=== PATIENT | female | born 1945 | race Two or more races ===

== ENCOUNTER 2017-01-10 15:08 | Emergency (ER) | payer OTHER ==
[~2017-01-10] VITALS: Ht 162.6 cm; Wt 58.1 kg
[2017-01-10 15:16] VITALS: BP 122/63
== END 2017-01-10 16:14 | disposition home or self-care (01) ==
LOC: ER 15:10
DX: S62.617A Displaced fracture of proximal phalanx of left little finger, initial encounter for closed fracture (principal); K58.9 Irritable bowel syndrome, unspecified; M79.7 Fibromyalgia; Z88.8 Allergy status to other drugs, medicaments and biological substances; W01.0XXA Fall on same level from slipping, tripping and stumbling without subsequent striking against object, initial encounter; Y93.01 Activity, walking, marching and hiking; Y92.89 Other specified places as the place of occurrence of the external cause; Y99.8 Other external cause status
CPT/HCPCS: 29125; 73130; 99284; A4606; Z7610

== ENCOUNTER 2019-10-07 21:47 | Emergency (ER) | payer OTHER ==
[~2019-10-07] VITALS: Ht 162.6 cm; Wt 54.4 kg
--- NOTE | 2019-10-07 22:00 | NUR ---
PT AAOX4. BIBFRIEND C/O MIDSTERNAL CHEST PAIN NON RADIATING X1HR QUALITY NURSE. RR EVEN AND UNLABORED. PT STATES CP IS 3/10 AT THE MOMENT. VSS. NO ACUTE DISTRESS NOTED. LINE INITITATED, LABS DRAWN AND SENT TO LAB. AWAITING MD FOR EVAL. WILL CONTNUE TO MONITOR.
[2019-10-07 22:03] LABS: BASOPHILS % (AUTO) 0.4 % (0.0-2.0); HEMATOCRIT 42 % (33-45); HEMOGLOBIN 13.3 g/dL (11.5-14.8); LYMPHOCYTES # (AUTO) 2.4 /CMM (0.8-4.8); LYMPHOCYTES % (AUTO) 41.6 % (20.0-44.0); MEAN CORPUSCULAR HGB CONC 32 g/dl (31.0-36.0); MEAN CORPUSCULAR VOLUME 79 fL (82-100); MONOCYTES # (AUTO) 0.4 /CMM (0.1-1.30); NEUTROPHILS # (AUTO) 2.9 /CMM (1.8-8.9); PLATELET COUNT (AUTO) 205 /CMM (150-450); RED BLOOD CELL COUNT(AUTO) 5.28 MIL/uL (4.0-5.2); WHITE BLOOD COUNT (AUTO) 5.7 K/uL (4.3-11.0)
[2019-10-07 22:09] LABS: CALCIUM, SERUM 9.3 mg/dL (8.5-10.1); CARBON DIOXIDE 30 mmol/L (21-32); CHLORIDE 104 mmol/L (98-107); CREATININE 0.9 mg/dL (0.6-1.3); GLUCOSE 115 mg/dL (74-106); POTASSIUM 3.2 mmol/L (3.5-5.1); SODIUM SERUM 142 mmol/L (136-145); UREA NITROGEN, BLOOD 19 mg/dL (7-18)
--- NOTE | 2019-10-07 23:34 | NUR ---
Patient is resting comfortably in bed. Easily aroused. VSS.
--- NOTE | 2019-10-07 23:42 | NUR ---
PT DENIES CP. STATES 09/15 DULL.
--- NOTE | 2019-10-07 23:44 | NUR ---
TRANSFER INFO: [facility] ROOM [address] UN[address], RN FOR REPORT [phone] [facility] ETA 0030 CM AKBAR [phone]
[2019-10-08 00:09] VITALS: BP 158/75
--- NOTE | 2019-10-08 00:09 | NUR ---
pt ambulated to restroom. vss.
--- NOTE | 2019-10-08 00:25 | NUR ---
report given to Letty TELLEZ
== END 2019-10-08 00:50 | disposition short-term general hospital (02) ==
LOC: ER 21:49
DX: R07.89 Other chest pain (principal); E78.00 Pure hypercholesterolemia, unspecified; Z98.890 Other specified postprocedural states; Z60.2 Problems related to living alone; Z88.0 Allergy status to penicillin; Z91.040 Latex allergy status; Z88.6 Allergy status to analgesic agent
CPT/HCPCS: 36415; 71045-TC; 80048-TC; 84484-TC; 85025-TC

== ENCOUNTER 2022-09-13 13:57 | Inpatient (IN) | payer BC, OTHER ==
[~2022-09-13] VITALS: Ht 165.1 cm; Wt 57.2 kg
--- NOTE | 2022-09-13 14:28 | NUR ---
ESTABLISHED IV ACCESS 20G LAC, BLOOD DRAWN AND SENT TO LAB.
[2022-09-13] MEDS ORDERED: ASPIRIN 81 MG TAB.CHEW ONE (14:30)
[2022-09-13] MEDS ORDERED: ASPIRIN 81 MG TAB.CHEW PO ONE (14:30)
--- NOTE | 2022-09-13 14:30 | NUR ---
DR. ALBERT AT BEDSIDE.
--- NOTE | 2022-09-13 14:35 | NUR ---
COVID SWAB COLLECTED AND SENT TO LAB.
[2022-09-13] MEDS ORDERED: VALA500T40 PO (14:41)
[2022-09-13] MEDS ORDERED: LAMO25TA10 PO (14:41)
[2022-09-13] MEDS ORDERED: ALPR0.255 PO (14:41)
[2022-09-13] MEDS ORDERED: CHOL200013 PO (14:41)
[2022-09-13] MEDS ORDERED: CARV6.252 PO (14:41)
[2022-09-13] MEDS ORDERED: ROSU5TAB13 PO (14:41)
[2022-09-13] MEDS ORDERED: AMLO-212 PO (14:41)
[2022-09-13] MEDS ORDERED: CARB15DR OP (14:41)
--- NOTE | 2022-09-13 14:59 | NUR ---
MOVE SHEET SUBMITTED.
[2022-09-13 15:21] LABS: BASOPHILS % (AUTO) 0.2 % (0.0-2.0); HEMATOCRIT 41 % (33-45); LYMPHOCYTES # (AUTO) 1.6 K/uL (0.8-4.8); LYMPHOCYTES % (AUTO) 38.3 % (20.0-44.0); MEAN CORPUSCULAR HGB CONC 32 g/dl (31.0-36.0); MEAN CORPUSCULAR VOLUME 78 fL (82-100); MONOCYTES # (AUTO) 0.4 K/uL (0.1-1.30); MONOCYTES % (AUTO) 8.2 % (2.0-12.0); NEUTROPHILS # (AUTO) 2.3 K/uL (1.8-8.9); NEUTROPHILS % (AUTO) 53.3 % (43.0-81.0); PLATELET COUNT (AUTO) 190 K/uL (150-450); RED BLOOD CELL COUNT(AUTO) 5.18 MIL/uL (4.0-5.2); WHITE BLOOD COUNT (AUTO) 4.3 K/uL (4.3-11.0)
--- NOTE | 2022-09-13 15:29 | NUR ---
[facility] CALLED SUPERVISOR OF OFFICIALS PAGED.
[2022-09-13 16:00] LABS: CALCIUM, SERUM 9.4 mg/dL (8.5-10.1); CARBON DIOXIDE 30 mmol/L (21-32); CHLORIDE 104 mmol/L (98-107); CREATININE 0.9 mg/dL (0.6-1.3); GLUCOSE 93 mg/dL (74-106); POTASSIUM 4.1 mmol/L (3.5-5.1); SODIUM SERUM 141 mmol/L (136-145); UREA NITROGEN, BLOOD 18 mg/dL (7-18)
[2022-09-13] MEDS ORDERED: VALACYCLOVIR HCL 500 MG TABLET PO PRN (16:00)
[2022-09-13] MEDS ORDERED: ONDANSETRON HCL/PF 4 MG/2 ML VIAL IVP PRN (16:00)
[2022-09-13] MEDS ORDERED: MORPHINE SULFATE INJ 2 MG/ML DISP.SYRIN IV PRN (16:00)
--- NOTE | 2022-09-13 17:01 | NUR ---
ROOM ASSIGNED, 307.1 ADMITTING AWARE.
--- NOTE | 2022-09-13 17:12 | NUR ---
REPORT GIVEN TO ROSALINDA GOLD FOR DYANA
[2022-09-13] MEDS ORDERED: POLYVINYL ALCOHOL 15 ML BOTTLE OP PRN (18:30)
[2022-09-13] MEDS: CARVEDILOL 6.25 MG TABLET PO SCH (18:58)
--- NOTE | 2022-09-13 19:00 | NUR ---
ADMISSION NOTES RECEIVED PATIENT FROM ER A/O X3 AROUND 6PM. ON TELE MONITOR READING AT SR 76. NO S/S OF PAIN NOTED AT THIS TIME. PATIENT ON RA, TOLERATING WELL. BREATHING EVEN AND UNLABORED. NO DISTRESS OR SHORTNESS OF BREATH NOTED. INITIAL VITALS TAKEN, STABLE AND RECORDED. ORIENTED TO ROOM, VERBALIZED UNDERSTANDING. SAFETY MEASURES GIVEN WITH BED ON LOWEST AND LOCKED POSITION. CALL LIGHT AND TRAY WITHIN REACH. ENDORSED TO NIGHT NURSE FOR THE ADMISSION PROCESS AND CONTINUITY OF CARE.
--- NOTE | 2022-09-13 19:10 | NUR ---
RN opening notes Received Pt from am nurse. Pt is a new admitted from ER. Pt is sitting in bed comfortably accompanied by Pt' family. Pt is alert and orientedX4. on room air. no SOB. No S/S of distress noted. IV site at LAC#20 is clean, intact and flushes well, SL. Tele monitor showed SR. Safety precautions is maintained. Bed at low position, brakes locked, side rails upX2, hob elevated, bed alarm is on, and call light is within reach. will continue to monitor.
--- NOTE | 2022-09-13 19:20 | NUR ---
RN notes Dr. Zaidi at the bedside.
[2022-09-13 20:00] VITALS: BP 129/62
[2022-09-13] MEDS: HEPARIN SODIUM, PORCINE 5000 UNITS/1 ML VIAL SQ SCH (21:00)
[2022-09-13] MEDS ORDERED: ALPRAZOLAM 0.25 MG TABLET PO PRN (22:00)
[2022-09-13] MEDS: ATORVASTATIN 10 MG TABLET PO SCH (22:21)
[2022-09-13] MEDS: LamoTRIgine 100 MG TABLET PO SCH (22:21)
--- NOTE | 2022-09-13 22:26 | NUR ---
RN notes Held heparin for CT angio procedure tomorrow.
--- NOTE | 2022-09-13 22:53 | NUR ---
RN notes Pt refuses to sign the consent for CT angio per MD ordered. Pt is concerned that the procedure will not covered by Pt's insurance. Charge nurse is aware and informed. Explained risks and benefits. Pt is aware and verbalize understanding.
[2022-09-14] VITALS: BP 124/72
[2022-09-14] MEDS: ACETAMINOPHEN 325 MG TABLET PO PRN ×2 (00:16→07:55)
[2022-09-14 01:34] VITALS: BP 124/72
[2022-09-14 04:00] VITALS: BP 124/53
--- NOTE | 2022-09-14 06:50 | NUR ---
RN CLOSING NOTE PT IS ASLEEP AND RESTING COMFORTABLE IN BED.IN RA.RESPONSIVE AND FOLLOWS VERBAL COMMAND. A/O X 4. NO S/S OF RESPIRATORY DISTRESS NOTED. ON TELE MONITOR WITH CURRENT READING SR 71. IV SITE LAC #20G SALINE LOCK. MEDICATION GIVEN ORDERED. SAFETY MEASURE MAINTAINED W/ BED IN ITS LOWEST AND LOCKED POSITION, BED ALARM ON, TABLE & CALL LIGHT WITHIN REACH, SIDE RAILS UP X 2. WILL ENDORSE TO THE NEXT SHIFT FOR CONTNUITY OF CARE.
[2022-09-14 07:23] LABS: BASOPHILS % (AUTO) 0.3 % (0.0-2.0); HEMATOCRIT 39 % (33-45); HEMOGLOBIN 12.5 g/dL (11.5-14.8); LYMPHOCYTES # (AUTO) 1.2 K/uL (0.8-4.8); MEAN CORPUSCULAR HGB CONC 32 g/dl (31.0-36.0); MEAN CORPUSCULAR VOLUME 78 fL (82-100); MONOCYTES # (AUTO) 0.3 K/uL (0.1-1.30); MONOCYTES % (AUTO) 10.9 % (2.0-12.0); NEUTROPHILS # (AUTO) 1.6 K/uL (1.8-8.9); NEUTROPHILS % (AUTO) 50.8 % (43.0-81.0); PLATELET COUNT (AUTO) 179 K/uL (150-450); RED BLOOD CELL COUNT(AUTO) 5.03 MIL/uL (4.0-5.2); WHITE BLOOD COUNT (AUTO) 3.1 K/uL (4.3-11.0)
[2022-09-14 07:30] LABS: ALANINE AMINOTRANSFERASE 16 U/L (12-78); ALBUMIN 3.7 g/dL (3.4-5.0); ALKALINE PHOSPHATASE 103 U/L (46-116); ASPARTATE AMINOTRANSFERASE 20 U/L (15-37); BILIRUBIN,TOTAL 0.7 mg/dL (0.2-1.0); CALCIUM, SERUM 9.3 mg/dL (8.5-10.1); CARBON DIOXIDE 30 mmol/L (21-32); CHLORIDE 105 mmol/L (98-107); GLUCOSE 89 mg/dL (74-106); MAGNESIUM 2.2 mg/dL (1.8-2.4); PHOSPHORUS 3.8 mg/dL (2.5-4.9); POTASSIUM 3.9 mmol/L (3.5-5.1); SODIUM SERUM 141 mmol/L (136-145); TOTAL PROTEIN, SERUM 6.8 g/dL (6.4-8.2); UREA NITROGEN, BLOOD 15 mg/dL (7-18)
[2022-09-14 08:00] VITALS: BP 149/75
--- NOTE | 2022-09-14 08:03 | NUR ---
COUNTY COMMISSIONER OPENING NOTE Received patient awake, alert and oriented x 4, c/o 4/10 headache. Gave patient tylenol 650 mg PO for mild pain. Will reassess. Also attached patient to oxygen @ 2 LPM via NC. Bed alarm on. Oriented patient to fall prevention protocals. Call light within patient's reach. Bed brakes locked and bed in lowest position with 2 bed siderails up. Will continue to monitor patient per POC. Maintaining NPO status for patient waiting for CT angio procedure and authorization from her insurance for procedure.
[2022-09-14] MEDS: CARVEDILOL 6.25 MG TABLET PO SCH ×2 (08:20→17:32)
[2022-09-14] MEDS: AMLODIPINE BESYLATE 5 MG TABLET PO SCH (08:20)
[2022-09-14] MEDS: CHOLECALCIFEROL 1,000 UNIT TABLET (VIT D3) PO SCH (08:21)
[2022-09-14] MEDS ORDERED: LamoTRIgine 100 MG TABLET PO SCH (09:00)
--- NOTE | 2022-09-14 09:10 | NUR ---
RE-ASSESSMENT OF PAIN Patient states she no longer has a headache receiving completerelief from tylenol and oxygen.
[2022-09-14] MEDS ORDERED: IOHEXOL-350 100 ML VIAL IV ONE (09:27)
[2022-09-14] MEDS ORDERED: IV NS 0.9% 250 ML IV ONE (09:28)
[2022-09-14] MEDS ORDERED: NITROGLYCERIN 0.4 MG/TAB BOTTLE ONE (09:28)
[2022-09-14] MEDS ORDERED: METOPROLOL TARTRATE INJ 5 MG/5 ML AMPUL ONE (09:28)
[2022-09-14] MEDS ORDERED: CT SWABBABLE VALVE TRANS SET 1 EA INFUS.SET MC ONE (09:28)
[2022-09-14] MEDS: HEPARIN SODIUM, PORCINE 5000 UNITS/1 ML VIAL SQ SCH ×2 (13:20→20:09)
[2022-09-14 16:00] VITALS: BP 124/56
--- NOTE | 2022-09-14 18:48 | NUR ---
Patient was able to find out that her insurance will authorize her procedure and the required co-pays,etc and is now willing to sign consent for procedure. Unfortunately, the CT scan contrast dye inject is broken and is now being repaired. Procedure re-scheduled for tomorrow after equipment is fixed. Patient ate lunch and dinner and tolerated food well. No further c/o chest pain observed nor voiced by patient. Will endorse to night baker to nurse for DYANA. Addendum: 09/14/22 at 2058 by ARIEL WATT RN MARGARITA TELLEZ CLOSING NOTE 1848 hrs
--- NOTE | 2022-09-14 20:09 | NUR ---
held heparin for procedure liu am.
[2022-09-14 20:13] VITALS: BP 123/60
--- NOTE | 2022-09-14 20:57 | NUR ---
RN OPENING NOTE PT IS AWAKE, A/O X 4, ABLE TO MAKE NEEDS KNOWN. ORIENTED TO STAFF & UNIT. PT IN NC 2L 02, TOLERATING WELL, BREATHING EVEN AND UNLABORED @ THIS TIME. PT W/ IV ACCESS PRESENT @ LAC #20g SL, PATENT, INTACT & FLUSHES WELL. NO S/S OF INFILTRATION NOTED. SIGNAL PERSON IS IN PLACE WITH CURRENT READING OF SR, HR 70. SAFETY MEASURES INITIATED, BED IN ITS LOWEST AND LOCKED POSITION, BED ALARM ON, SIDERAILS UP X 2. BEDSIDE TABLE AND CALL LIGHT EASY TO REACH. TO CONTINUE TO MONITOR PT ACCORDINGLY. Addendum: 09/14/22 at 2103 by ROSEMARY DAVIS RN OPENING NOTE @ 1900
[2022-09-14] MEDS: ATORVASTATIN 10 MG TABLET PO SCH (22:06)
[2022-09-14] MEDS: LamoTRIgine 100 MG TABLET PO SCH (22:06)
[2022-09-15 00:42] VITALS: BP 102/55
--- NOTE | 2022-09-15 01:09 | NUR ---
PT IS GOING CATH. LAB IN THE AM. PT REQUESTED TO SECURE HER VALUABLES. PT PACKED AND SEALED HER BELONGINGS IN A MONEY BAG. WITNESSED BY ROSALINDA MCKINNON. PT SIGNED THE BAG, ROSALINDA MCKINNON STORED BELONGINGS IN HOUSE SUP. SAFE.
--- NOTE | 2022-09-15 02:20 | NUR ---
RN notes Dropped Pt's belonging in the safe(sealed inside plastic bag) at [facility]. Vick Gutiérrez RN.
[2022-09-15 04:12] VITALS: BP 98/59
--- NOTE | 2022-09-15 06:58 | NUR ---
RN CLOSING NOTE PT IS ASLEEP IN BED. RESPONSIVE AND FOLLOWS VERBAL COMMAND, A/O X 4. NO S/S OF RESPIRATORY DISTRESS NOTED. ON TELE MONITOR W/ CURRENT READING SR HR 66. IV SITE ON LAC #20G SL, PATENT AND FLUSHES WELL WITH NO S/S OF INFILTRATION NOTED. PT IS KEPT CLEAN, DRY AND COMFORTABLE. SAFETY MEASURES MAINTAINED WITH BED IN LOWEST AND LOCK POSITION. BED ALARM ON. CALL LIGHT AND TABLE WITHIN REACH. SIDE RAILS UP X 2 . WILL ENDORSE TO THE NEXT SHIFT FOR CONTINUITY OF CARE.
--- NOTE | 2022-09-15 07:00 | NUR ---
INSURANCE MANAGER OPENING NOTES PATIENT LAYING IN BED, A/O X 4, ABLE TO MAKE NEEDS KNOWN, TOLERATING WELL ON 2 LPM O2 VIA CANNULA. TELE MONITOR IN PLACE READING SR 64. LAC # 20 SL CLEAN, INTACT, FLUSHING WELL. SAFETY MEASURES IN PLACE: BED IN LOWEST LOCKED POSITION, SIDE RAILS UP X 2, CALL LIGHT WITHIN REACH. WILL CONTINUE TO MONITOR.
[2022-09-15 08:00] VITALS: BP 115/74
[2022-09-15] MEDS: AMLODIPINE BESYLATE 5 MG TABLET PO SCH (09:00)
[2022-09-15] MEDS: HEPARIN SODIUM, PORCINE 5000 UNITS/1 ML VIAL SQ SCH ×2 (09:00→21:23)
[2022-09-15] MEDS: CARVEDILOL 6.25 MG TABLET PO SCH ×2 (09:00→17:00)
[2022-09-15] MEDS: CHOLECALCIFEROL 1,000 UNIT TABLET (VIT D3) PO SCH (09:00)
[2022-09-15 12:00] VITALS: BP 123/64
[2022-09-15 16:00] VITALS: BP 116/52
[2022-09-15] MEDS ORDERED: METOPROLOL TARTRATE INJ 5 MG/5 ML AMPUL ONE (17:47)
[2022-09-15] MEDS ORDERED: IV NS 0.9% 250 ML IV ONE (17:47)
[2022-09-15] MEDS ORDERED: IOHEXOL-350 100 ML VIAL IV ONE (17:47)
[2022-09-15] MEDS ORDERED: CT SWABBABLE VALVE TRANS SET 1 EA INFUS.SET MC ONE (17:47)
[2022-09-15] MEDS ORDERED: NITROGLYCERIN 0.4 MG/TAB BOTTLE ONE (17:59)
[2022-09-15] MEDS ORDERED: NITROGLYCERIN 0.4 MG/TAB BOTTLE SL ONE (18:00)
[2022-09-15] MEDS: METOPROLOL TARTRATE INJ 5 MG/5 ML AMPUL IVP PRN ×2 (18:00→18:05)
--- NOTE | 2022-09-15 18:12 | NUR ---
FULL CHARGE BOOKKEEPER NOTES PATIENT CURRENTLY OFF OF UNIT FOR PROCEDURE
--- NOTE | 2022-09-15 18:34 | NUR ---
INTERIOR ASSEMBLIES DEVELOPER PROVER CLOSING NOTES PATIENT LAYING IN BED, A/O X 4, ABLE TO MAKE NEEDS KNOWN, TOLERATING WELL ON ROOM AIR. TELE MONITOR IN PLACE READING SR 98. LAC # 20 SL CLEAN, INTACT, FLUSHING WELL. SAFETY MEASURES IN PLACE: BED IN LOWEST LOCKED POSITION, SIDE RAILS UP X 2, CALL LIGHT WITHIN REACH. ALL NEEDS MET. WILL ENDORSE TO SOCIAL MEDIA MARKETING SPECIALIST FOR DYANA.
--- NOTE | 2022-09-15 19:46 | NUR ---
RN OPENING NOTE PATIENT AWAKE IN BED. A/OX4. NO S/S OF DISTRESS, BREATHING WITHOUT DIFFICULTY ON ROOM AIR. LAC #20 SL INTACT AND PATENT. TELE READS ST 101. SAFETY MEASURES IN PLACE: BED LOCKED AND AT LOWEST POSITION, RAILS UP X2, CALL [place] WITHIN REACH. WILL CONTINUE TO MONITOR PATIENT.
[2022-09-15 20:00] VITALS: BP 103/48
[2022-09-15] MEDS: LamoTRIgine 100 MG TABLET PO SCH (21:24)
[2022-09-15] MEDS: ATORVASTATIN 10 MG TABLET PO SCH (21:24)
[2022-09-16] VITALS: BP 100/59
[2022-09-16 04:00] VITALS: BP 99/63
[2022-09-16] MEDS: ACETAMINOPHEN 325 MG TABLET PO PRN (04:27)
[2022-09-16 05:50] LABS: BASOPHILS % (AUTO) 0.3 % (0.0-2.0); HEMATOCRIT 39 % (33-45); HEMOGLOBIN 12.5 g/dL (11.5-14.8); LYMPHOCYTES # (AUTO) 1.3 K/uL (0.8-4.8); LYMPHOCYTES % (AUTO) 34.2 % (20.0-44.0); MEAN CORPUSCULAR HGB CONC 32 g/dl (31.0-36.0); MEAN CORPUSCULAR VOLUME 78 fL (82-100); MONOCYTES # (AUTO) 0.5 K/uL (0.1-1.30); NEUTROPHILS # (AUTO) 2.1 K/uL (1.8-8.9); NEUTROPHILS % (AUTO) 53.5 % (43.0-81.0); PLATELET COUNT (AUTO) 178 K/uL (150-450); RED BLOOD CELL COUNT(AUTO) 4.97 MIL/uL (4.0-5.2); WHITE BLOOD COUNT (AUTO) 3.9 K/uL (4.3-11.0)
[2022-09-16 06:02] LABS: CALCIUM, SERUM 9.2 mg/dL (8.5-10.1); MAGNESIUM 2.1 mg/dL (1.8-2.4); PHOSPHORUS 4.4 mg/dL (2.5-4.9); POTASSIUM 3.8 mmol/L (3.5-5.1)
--- NOTE | 2022-09-16 06:25 | NUR ---
RN CLOSING NOTE PATIENT ASLEEP IN BED. A/OX4. NO S/S OF DISTRESS, BREATHING WITHOUT DIFFICULTY ON ROOM AIR. LAC #20 SL INTACT AND PATENT. TELE READS SR 64. SAFETY MEASURES IN PLACE: BED LOCKED AND AT LOWEST POSITION, RAILS UP X2, CALL [place] WITHIN REACH. WILL ENDORSE TO NEXT SHIFT FOR DYANA.
--- NOTE | 2022-09-16 07:30 | NUR ---
MS RN RECEIVED ON BED, AWAKE,ALERT,ORIENTEDX4,NOT IN ANY FORM OF DISTRESS, RESPIRATIONS EVEN AND UNLABORED,NO SOB NOTED, DENIES PAIN AT THIS TIME, WILL MONITOR PATIENT'S CONDITION.
[2022-09-16 08:00] VITALS: BP 105/59
[2022-09-16 09:00] VITALS: BP 105/59
[2022-09-16] MEDS: AMLODIPINE BESYLATE 5 MG TABLET PO SCH (09:00)
[2022-09-16] MEDS: CARVEDILOL 6.25 MG TABLET PO SCH (09:00)
--- NOTE | 2022-09-16 09:10 | NUR ---
MS TELLEZ BREAKFAST SERVED,DUE MEDS GIVEN,TOLERATED WELL. WILL MONITOR PATIENT.
[2022-09-16] MEDS: HEPARIN SODIUM, PORCINE 5000 UNITS/1 ML VIAL SQ SCH (09:12)
[2022-09-16] MEDS: CHOLECALCIFEROL 1,000 UNIT TABLET (VIT D3) PO SCH (09:13)
--- NOTE | 2022-09-16 10:00 | NUR ---
MS RN WAS SEEN BY EVER SMILEY TO GO HOME TODAY, SO WITH DR. LIZARRAGA, WILL PREPARE FOR DISCHARGE.
[2022-09-16] MEDS ORDERED: LAMO100T2 PO (10:53)
[2022-09-16] MEDS ORDERED: NITR0.4T48 SL (10:55)
--- NOTE | 2022-09-16 12:14 | NUR ---
ms rn infusion instructions given and understood, went home accompanied by son,all needs attended.
== END 2022-09-16 12:15 | disposition home or self-care (01) | DRG 311 ==
LOC: ER 14:00 → TELE 17:34
PROVIDERS: ADMIT Internal Medicine; ATTEND Student in an Organized Health Care Education/Training Program
DX: I20.0 Unstable angina (principal); I50.32 Chronic diastolic (congestive) heart failure; E78.5 Hyperlipidemia, unspecified; I11.0 Hypertensive heart disease with heart failure; K58.9 Irritable bowel syndrome, unspecified; M79.7 Fibromyalgia; Z98.890 Other specified postprocedural states; Z88.8 Allergy status to other drugs, medicaments and biological substances; Z88.0 Allergy status to penicillin; Z91.040 Latex allergy status; Z79.899 Other long term (current) drug therapy; G47.00 Insomnia, unspecified; Z82.49 Family history of ischemic heart disease and other diseases of the circulatory system; Z20.822 Contact with and (suspected) exposure to COVID-19
CPT/HCPCS: 36415; 71045-TC; 75574; 80048-TC; 80053-TC; 83735-TC; 84100-TC; 84484-TC; 85025-TC; 85610-TC; 85730-TC; 86850-TC; 87081-TC; 93307-TC; C9803; G0378; J1644; J3490; J7050; Q9967